=== PATIENT | male | born 1960 | race Caucasian/White ===

== ENCOUNTER → 2016-07-01 | Outpatient (CLI) | payer OTHER ==
[~2016-07-01] VITALS: Ht 182.9 cm; Wt 195.8 kg
[~2016-07-01] MED LIST: ASPI81TA11 PO; BUPR300T PO; CHLORHEXIDINE GLUCONATE 2 % 1 PACK (2 CLOTHS) TOPICAL PRN; CLAR10CA3 PO; CLON1TAB PO; DICL75TA PO; GLYCOPYRROLATE 0.2 MG/ML VIAL IV ONE; INSULIN HUMAN REGULAR 1,000 UNITS/10 ML VIAL SQ PRN; LACTATED RINGER'S 1000 ML IV PRN; METOPROLOL TARTRATE 25 MG TAB PO PRN; MIDAZOLAM HCL 2 MG/2 ML VIAL ONE; POVIDONE IODINE 5% (ANTISEPSIS KIT) 4 APPLICATIONS EACH NARE PRN; PROPOFOL 200 MG/20 ML AMP IV ONE; SERT-129 PO; SIMV40TA PO; SODIUM CHLORID 0.9% 500 ML IV PRN
[2016-07-01 06:26] VITALS: BP 137/74; PULSE 73; RESP 20; TEMP 98.2; O2SAT 95
[2016-07-01 09:30] VITALS: BP 155/69; PULSE 75; RESP 18; TEMP 98.3; O2SAT 94
--- NOTE | 2016-07-01 14:17 | EKG ---
Date Performed: 07/01/2016 Time Performed: 06:28:14 PTAGE: 56 years EKG: Sinus rhythm BORDERLINE LEFT AXIS DEVIATION BORDERLINE ECG NO PREVIOUS TRACING DOCTOR: Emil Monroy Interpretating Date/Time 07/01/2016 14:16:51
--- NOTE | 2016-07-01 15:36 | GIPROC ---
[facility] [address] [facility], [id number] EGD PROCEDURE REPORT EXAM DATE: 07/01/2016 PATIENT NAME: Gordo Chester MR #: [id number] BIRTHDATE: 1960 ATTENDING: Carlos Rice MD ORDER #: [id number] DIE CLEANER: Shannon Hernandez and Ban Rollins STATUS: outpatient INDICATIONS: The patient is a 56 yr old male here for an EGD due to dysphagia PROCEDURE PERFORMED: EGD w/ biopsy MEDICATIONS: None and Per Anesthesia. TOPICAL ANESTHETIC: none CONSENT: The patient understands the risks and benefits of the procedure and understands that these risks include, but are not limited to: sedation, allergic reaction, infection, perforation and/or bleeding. Alternative means of evaluation and treatment include, among others: physical exam, x-rays, and/or surgical intervention. The patient elects to proceed with this endoscopic procedure. medical equipment was checked for proper function. Hand hygiene and appropriate measures for infection prevention was taken. After the risks, benefits and alternatives of the procedure were thoroughly explained, Informed consent was verified, confirmed and timeout was successfully executed by the treatment team. The patient was anesthetized and the Pentax EG-[id number] endoscope was introduced through the mouth and advanced to the first portion of the duodenum. Retroflexed views revealed no abnormalities. The antrum was biopsied for h. pylori. The gastroscope was then slowly withdrawn and removed. The endoscopy was otherwise normal. ADVERSE EVENTS: There were no complications. IMPRESSIONS: 1. Normal endoscopy otherwise 2. Retroflexed views revealed no abnormalities RECOMMENDATIONS: Await biopsy results. Biopsy results will not be ready for 7-10 days. If you don't hear from us in two weeks, call our office for biopsy results. PATIENT CONDITION: fair DISPOSITION: Home REPEAT EXAM: NONE Carlos Rice MD eSigned: Carlos Rice MD 07/01/2016 3:36 PM cc: Sin Pradhan M.D.
== END ==
LOC: HSDC 05:37
PROVIDERS: ATTEND Surgery
DX: K29.50 Unspecified chronic gastritis without bleeding (principal); Z01.810 Encounter for preprocedural cardiovascular examination
CPT/HCPCS: 43239; 88305; 88312; 93005; J2250; J7120

== ENCOUNTER 2016-10-12 05:46 | Inpatient (IN) | payer OTHER ==
[~2016-10-12] VITALS: Ht 182.9 cm; Wt 187.5 kg
[~2016-10-12 05:46] MED LIST changes: -CHLORHEXIDINE GLUCONATE 2 % 1 PACK (2 CLOTHS) TOPICAL PRN; -GLYCOPYRROLATE 0.2 MG/ML VIAL IV ONE; -INSULIN HUMAN REGULAR 1,000 UNITS/10 ML VIAL SQ PRN; -LACTATED RINGER'S 1000 ML IV PRN; -METOPROLOL TARTRATE 25 MG TAB PO PRN; -MIDAZOLAM HCL 2 MG/2 ML VIAL ONE; -POVIDONE IODINE 5% (ANTISEPSIS KIT) 4 APPLICATIONS EACH NARE PRN; -PROPOFOL 200 MG/20 ML AMP IV ONE; -SODIUM CHLORID 0.9% 500 ML IV PRN; +TRAZ100T6 PO
[2016-10-12] MEDS ORDERED: LACTATED RINGER'S 1000 ML IV PRN (06:15)
[2016-10-12] MEDS ORDERED: SCOPOLAMINE 1.5 MG PATCH T-DERMAL SCH (06:15)
[2016-10-12] MEDS ORDERED: APREPITANT 40 MG CAP PO SCH (06:15)
[2016-10-12] MEDS ORDERED: ACETAMINOPHEN 1000 MG/100 ML VIAL IV SCH (06:15)
[2016-10-12] MEDS ORDERED: INSULIN HUMAN REGULAR 1,000 UNITS/10 ML VIAL SQ PRN (06:15)
[2016-10-12] MEDS ORDERED: ONDANSETRON HCL 4 MG/2 ML VIAL IV PUSH SCH (06:15)
[2016-10-12] MEDS ORDERED: POVIDONE IODINE 5% (ANTISEPSIS KIT) 4 APPLICATIONS EACH NARE PRN (06:15)
[2016-10-12] MEDS ORDERED: ceFAZolin 2 GM PREMIX 50 ML IV SCH (06:15)
[2016-10-12] MEDS ORDERED: SODIUM CHLORID 0.9% 500 ML IV PRN (06:15)
[2016-10-12] MEDS ORDERED: metroNIDAZOLE 500 MG INJ 100 ML IV SCH (06:15)
[2016-10-12] MEDS ORDERED: METOPROLOL TARTRATE 25 MG TAB PO PRN (06:15)
[2016-10-12] MEDS ORDERED: CHLORHEXIDINE GLUCONATE 2 % 1 PACK (2 CLOTHS) TOPICAL PRN (06:15)
[2016-10-12] MEDS ORDERED: BUPIVACAINE/EPINEPHRINE 0.25% 50 ML VIAL ONE ×2 (06:58→08:38)
[2016-10-12] MEDS ORDERED: METHYLENE BLUE 10 MG/ML VIAL ONE (08:38)
[2016-10-12] MEDS ORDERED: SUGAMMADEX SODIUM 200 MG/2 ML VIAL IV PUSH ONE ×2 (08:51)
[2016-10-12] MEDS ORDERED: DO NOT ADM ANY ANTICOAGULANT DRUGS PRN (11:10)
[2016-10-12] MEDS ORDERED: MORPHINE SULFATE 4 MG/ML INJ ONE (11:17)
[2016-10-12] MEDS ORDERED: *morphine SULFATE 8 MG/ML PERIprocedure ONLY ONE (11:18)
[2016-10-12] MEDS ORDERED: NALOXONE HCL 0.4 MG/ML AMP IV PRN (11:30)
[2016-10-12] MEDS ORDERED: MORPHINE SULFATE 30 MG/30 ML PCA IV SCH (11:30)
[2016-10-12] MEDS ORDERED: diphenhydrAMINE HCL 50 MG/ML VIAL IV PRN (11:30)
[2016-10-12] MEDS ORDERED: ACETAMINOPHEN 325MG/HYDROcodone 7.5MG/15ML UDC PO PRN ×2 (11:30)
[2016-10-12] MEDS ORDERED: Post-op Orders (for Pharmacy) MISC OTHER ONE (11:30)
[2016-10-12] MEDS ORDERED: SODIUM CHLORIDE 0.9% FLUSH 10 ML FLUSH PRN (11:30)
[2016-10-12] MEDS ORDERED: ENALAPRILAT 1.25 MG/ML VIAL IV PUSH PRN (11:30)
[2016-10-12] MEDS ORDERED: diphenhydrAMINE HCL ELIXIR 12.5 MG/5 ML CUP PO PRN (11:30)
[2016-10-12] MEDS ORDERED: ONDANSETRON HCL 4 MG/2 ML VIAL IV PRN (11:30)
[2016-10-12] MEDS ORDERED: *ONDANSETRON 4 MG VIAL PERIprocedural Use ONLY ONE (11:56)
[2016-10-12] MEDS ORDERED: LACTATED RINGER'S 1000 ML INJ 1,000 ML IV ONE (12:00)
[2016-10-12] MEDS ORDERED: PROPOFOL 200 MG/20 ML AMP IV ONE (12:00)
[2016-10-12] MEDS: 1/2 NS + KCL 20 MEQ INJ 1,000 ML IV SCH ×2 (12:00→22:17)
[2016-10-12] MEDS ORDERED: ONDANSETRON HCL 4 MG/2 ML VIAL IV PUSH ONE (12:00)
[2016-10-12] MEDS: RESP: ALBUTEROL 2.5 MG/3 ML NEB (SCH) INH (12:00)
[2016-10-12] MEDS: METOCLOPRAMIDE HCL 10 MG/2 ML VIAL IV PUSH SCH ×2 (12:00→17:41)
[2016-10-12] MEDS ORDERED: *RESP: ALBUTEROL 2.5 MG/3 ML NEB (PRN) PERIprocedural Use ONLY NEB ONE (12:03)
[2016-10-12] MEDS ORDERED: PROMETHAZINE INJ 25 MG/ML VIAL ONE (13:38)
[2016-10-12] MEDS: PCA - TOTAL MG MORPHINE DELIVERED PER SHIFT SCH ×2 (14:00→22:00)
[2016-10-12] MEDS: metroNIDAZOLE 500 MG INJ 100 ML IV SCH (14:46)
[2016-10-12] MEDS ORDERED: ENOXAPARIN SODIUM 40 MG/0.4 ML SYRINGE SQ SCH (15:00)
[2016-10-12 16:00] VITALS: BP 143/67; PULSE 69; RESP 17; TEMP 97.3; O2SAT 92
[2016-10-12 20:00] VITALS: BP 124/61; PULSE 75; RESP 20; TEMP 98.1; O2SAT 95
[2016-10-12] MEDS: SODIUM CHLORIDE 0.9% FLUSH 10 ML FLUSH IV FLUSH SCH (22:21)
[2016-10-12 22:35] VITALS: BP 144/71; PULSE 61; RESP 20; TEMP 97; O2SAT 94
[2016-10-13] MEDS: METOCLOPRAMIDE HCL 10 MG/2 ML VIAL IV PUSH SCH ×2 (00:12→05:18)
[2016-10-13] MEDS: metroNIDAZOLE 500 MG INJ 100 ML IV SCH ×2 (00:13→08:00)
[2016-10-13] MEDS: RESP: ALBUTEROL 2.5 MG/3 ML NEB (SCH) INH ×3 (00:44→11:16)
[2016-10-13] MEDS: PCA - TOTAL MG MORPHINE DELIVERED PER SHIFT SCH ×2 (05:16→09:48)
[2016-10-13] MEDS: 1/2 NS + KCL 20 MEQ INJ 1,000 ML IV SCH ×2 (05:24→12:00)
[2016-10-13 07:31] LABS: AUTOMATED NEUTROPHIL # 6.7 TH/MM3 (1.8-7.7); BASOPHIL % 0.5 % (0.0-2.0); EOSINOPHIL # 0.2 TH/MM3 (0-0.4); HEMATOCRIT 35.8 % (39.0-51.0); HEMO FLAGS DIFF FINAL; LYMPH % 8.3 % (9.0-44.0); LYMPHOCYTE # 0.7 TH/MM3 (1.0-4.8); MEAN CORPUSCULAR HEMOGLOBIN 29.2 PG (27.0-34.0); MEAN CORPUSCULAR HGB CONC 33.5 % (32.0-36.0); MONO % 10.7 % (0.0-8.0); NEUT % 78.5 % (16.0-70.0); PLATELET COUNT 233 TH/MM3 (150-450); RED BLOOD COUNT 4.11 MIL/MM3 (4.50-5.90); RED CELL DISTRIBUTION WIDTH 13.9 % (11.6-17.2); WHITE BLOOD COUNT 8.5 TH/MM3 (4.0-11.0)
[2016-10-13 07:46] LABS: BICARBONATE 27.5 MEQ/L (21.0-32.0); MAGNESIUM 2.3 MG/DL (1.5-2.5); POTASSIUM 4.1 MEQ/L (3.5-5.1)
[2016-10-13 08:00] VITALS: BP 130/62; PULSE 62; RESP 20; TEMP 98.2; O2SAT 95
[2016-10-13 08:40] VITALS: BP 131/74; PULSE 52; RESP 18; TEMP 99.7; O2SAT 94
[2016-10-13] MEDS ORDERED: PANTOPRAZOLE SOD 40 MG DELAYED RELEASE TAB PO SCH (09:00)
[2016-10-13] MEDS: SODIUM CHLORIDE 0.9% FLUSH 10 ML FLUSH IV FLUSH SCH (09:39)
[2016-10-13] MEDS ORDERED: METOCLOPRAMIDE HCL 10 MG/2 ML VIAL IV PUSH PRN (11:30)
--- NOTE | 2016-10-13 13:19 | HHI.PR ---
Subjective Subjective Notes Sitting on side of bed Tolerating PO fluids Nausea relieved with medication Objective Vitals/I&O Vital Signs Date Time Temp Pulse Resp B/P (MAP) Pulse Ox O2 Delivery O2 Flow Rate FiO2 10/13/16 08:40 99.7 52 18 131/74 (93) 94 10/12/16 13:50 Nasal Cannula 2 Labs Laboratory Tests Test 10/13/16 05:48 10/13/16 06:48 Blood Urea Nitrogen 11 Creatinine 1.09 Random Glucose 105 Calcium Level 7.6 Magnesium Level 2.3 Sodium Level 138 Potassium Level 4.1 Chloride Level 103 Carbon Dioxide Level 27.5 Anion Gap 8 Estimat Glomerular Filtration Rate 69 White Blood Count 8.5 Red Blood Count 4.11 Hemoglobin 12.0 Hematocrit 35.8 Mean Corpuscular Volume 87.0 Mean Corpuscular Hemoglobin 29.2 Mean Corpuscular Hemoglobin Concent 33.5 Red Cell Distribution Width 13.9 Platelet Count 233 Mean Platelet Volume 7.7 Neutrophils (%) (Auto) 78.5 Lymphocytes (%) (Auto) 8.3 Monocytes (%) (Auto) 10.7 Eosinophils (%) (Auto) 2.0 Basophils (%) (Auto) 0.5 Neutrophils # (Auto) 6.7 Lymphocytes # (Auto) 0.7 Monocytes # (Auto) 0.9 Eosinophils # (Auto) 0.2 Basophils # (Auto) 0.0 CBC Comment DIFF FINAL Differential Comment Cardiovascular: Regular Lungs: Clear Abdomen: Post-op tenderness Extremities: Perfused Wound Wound : Wound Location: Abdomen Appearance: Clean & Dry A/P Assessment and Plan 56yo M POD#1 laparoscopic VSG -Continue to increase fluids as tolerated -Continue with frequent ambulation The exam, history, and the medical decision-making described in the above note were completed with the assistance of the mid-level provider. I reviewed and agree with the findings presented. I attest that I had a [id number] encounter with the patient on the same day, and personally performed and documented my assessment and findings in the medical record. Discharge Planning D/C home today Kelli Loera Oct 13, 2016 13:19 Sin Pradhan MD Oct 23, 2016 16:36
[2016-10-13] MEDS ORDERED: BUPR150T5 PO (13:24)
[2016-10-13 13:30] VITALS: BP 159/76; PULSE 68; RESP 20; TEMP 98.5; O2SAT 93
--- NOTE | 2016-11-22 16:30 | MP ---
cc: STEVE PRADHAN DATE OF SURGERY: 10/12/2016 PREOPERATIVE DIAGNOSIS: Morbid obesity with BMI of 56 complicated by obstructive sleep apnea, hypercholesterolemia. POSTOPERATIVE DIAGNOSIS Morbid obesity with BMI of 56 complicated by obstructive sleep apnea, hypercholesterolemia. PROCEDURE Laparoscopic vertical sleeve gastrectomy over a 36-Serbian ViSiGi bougie. SURGEON Steve Pradhan MD. CO-SURGEON Dr. Rice was necessary during the operation due to the complexity of the operation. Dr. Rice was necessary for exposure and manipulation during the procedure. Dr. Rice was present for the entire procedure. The event sales assistant provided by the hospital was utilized at the back table and with camera. ANESTHESIA General endotracheal anesthesia ESTIMATED BLOOD LOSS Scant FINDINGS Fatty liver SPECIMEN None COMPLICATIONS None. DESCRIPTION OF PROCEDURE: The patient was brought to the operating room and placed on the operating table in supine position, bilateral sequential inflation device placed on lower extremities. General anesthesia was instituted. Antibiotics was initiated. The abdomen was prepped and draped sterilely. A point 15 cm distal to the xiphoid in the midline was anesthetized with 0.25% Marcaine with epinephrine. A skin incision was made, 5-mm OptiView port placed under direct vision and pneumoperitoneum created. Under direct vision, three 5-mm left upper quadrant, a 15-mm right upper quadrant, 5-mm right upper quadrant ports placed. Prior to placement of all ports the skin and peritoneum were anesthetized with 0.25% Marcaine with epinephrine. The patient was placed in reverse Trendelenburg position left side up, the Roseanna-Flex retractor was placed. The left lobe of the liver was retracted. The vasculature along the greater curvature of the stomach was using harmonic scalpel starting a distance 5-cm proximal to the pylorus and carried towards the angle of His. The angle of His was taken down bluntly. Posterior ligamentous attachments were sharply . A 36-Serbian ViSiGi bougie was placed at the start of the case, was placed on suction. Division of the stomach started 5 cm proximal to the pylorus and carried towards the angle of His to completely excise approximately 80% of the stomach. This was performed using an Savanna Flex stapler at the pylorus. The first firing was with a black load, followed by a green load and four gold loads. All staple loads were reinforced with SeamGuard. A distance of 2 cm was left from the angle incisura and the staple line and a distance of 1 cm left from the GE junction and the staple line. The pylorus was then occluded, methylene blue tinged saline was instilled. There was no evidence of extravasation. The gastrocolic ligament was then sutured to the posterior leaflet of the SeamGuard using a 2-0 Vicryl suture in a running manner. Bleeding points were controlled with Evicel. The excised stomach was removed from the peritoneal cavity through the 15-mm port site in an Endopouch. The fascia at the 15-mm port site was approximated with 0 Vicryl suture. The CO2 was then released, all ports were removed, all skin incisions closed with 4-0 Monocryl. The abdominal wall was cleaned. A sterile dressing was placed. The patient was awakened and taken to the recovery room. MD ROBINA Kathleen/RYAN /2:15 PM /4:12 PM
== END 2016-10-13 14:28 | disposition home or self-care (01) | DRG 621 ==
LOC: HSDI 05:46 → N07A 14:04
PROVIDERS: ADMIT Surgery; ATTEND Surgery
PROC: 0DB64Z3 Excision of Stomach, Percutaneous Endoscopic Approach, Vertical (ICD-10-PCS; principal; 2016-10-12 09:01)
DX: E66.01 Morbid (severe) obesity due to excess calories (principal); K76.0 Fatty (change of) liver, not elsewhere classified; G47.33 Obstructive sleep apnea (adult) (pediatric); E78.00 Pure hypercholesterolemia, unspecified; E55.9 Vitamin D deficiency, unspecified; M19.90 Unspecified osteoarthritis, unspecified site; Z86.718 Personal history of other venous thrombosis and embolism; Z68.43 Body mass index [BMI] 50.0-59.9, adult
CPT/HCPCS: 80048; 83735; 85025; 94150; 94640; 94664; J0131; J0690; J1650; J2270; J2405; J2550; J2765; J3010; J7120; J7613; J8501